=== PATIENT | female | born 1980 | race Caucasian/White ===

== ENCOUNTER 2022-10-26 19:32 | Emergency (ER) | payer BC, OTHER ==
[~2022-10-26] VITALS: Ht 180.3 cm; Wt 104.3 kg
[2022-10-26] MEDS ORDERED: methylPREDNISolone 125 MG (Solu-MEDROL) VIAL IVP ONE (19:45)
[2022-10-26] MEDS ORDERED: FAMOTIDINE 20MG/2ML IV (PEPCID) IVP ONE (19:45)
[2022-10-26] MEDS ORDERED: diphenhydrAMINE 50 MG/ML INJ (BENADRYL) IVP ONE (19:45)
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
[2022-10-26 20:07] LABS: BASOPHILS # (AUTO) 0.1 10^3/uL (0.0-0.1); BASOPHILS % (AUTO) 0 % (0-10); EOSINOPHILS # (AUTO) 0.3 10^3/uL (0.0-0.3); EOSINOPHILS % (AUTO) 1 % (0-10); HEMATOCRIT 42 % (35-52); HEMOGLOBIN 14.2 g/dL (11.5-16.0); LYMPHOCYTES % (AUTO) 13 % (12-44); MEAN CORPUSCULAR HEMOGLOBIN 30 pg (25-34); MEAN CORPUSCULAR HGB CONC 34 g/dL (32-36); MEAN CORPUSCULAR VOLUME 88 fL (80-99); MEAN PLATELET VOLUME 9.9 fL (9.0-12.2); MONOCYTES # (AUTO) 1.3 10^3/uL (0.0-1.0); MONOCYTES % (AUTO) 6 % (0-12); NEUTROPHILS # (AUTO) 18.4 10^3/uL (1.8-7.8); NEUTROPHILS % (AUTO) 80 % (42-75); PLATELET COUNT 407 10^3/uL (130-400); WHITE BLOOD COUNT 23.1 10^3/uL (4.3-11.0)
[2022-10-26 20:13] LABS: INR 0.9 (0.8-1.4); PROTHROMBIN TIME PATIENT 12.8 SEC (12.2-14.7)
[2022-10-26 20:20] LABS: ALBUMIN 3.8 GM/DL (3.2-4.5); BILIRUBIN,TOTAL 0.4 MG/DL (0.1-1.0); CREATININE SERUM 0.86 MG/DL (0.60-1.30); POTASSIUM 3.9 MMOL/L (3.6-5.0); TOTAL PROTEIN 7.1 GM/DL (6.4-8.2)
--- NOTE | 2022-10-26 20:27 | Diagnostic Imaging Report ---
EXAMINATION: Chest 1 view. HISTORY: Fever. Shortness of breath. COMPARISON: None available. FINDINGS: The lung volumes are normal. No focal consolidation is seen. No large pleural effusion or pneumothorax is seen. The cardiomediastinal silhouette is normal in size and contour. No acute osseous abnormality is seen. IMPRESSION: No acute pleuroparenchymal process. Dictated by: Dictated on workstation # [id number]
[2022-10-26 21:00] LABS: NEUTROPHILS % (MANUAL) 72 %
[2022-10-26 21:01] LABS: BAND NEUTROPHILS 4 %; EOSINOPHILS % (MANUAL) 1 %; LYMPHOCYTES % (MANUAL) 15 %; MONOCYTES % (MANUAL) 8 %; PLATELET ESTIMATE OCC LARGE PLTS
[2022-10-26 21:23] LABS: BILIRUBIN,URINE NEGATIVE (NEGATIVE); CLARITY,URINE CLEAR; COLOR,URINE YELLOW; GLUCOSE, URINE (UA) NEGATIVE (NEGATIVE); KETONES,URINE NEGATIVE (NEGATIVE); LEUKOCYTE ESTERASE ,URINE NEGATIVE (NEGATIVE); NITRITE,URINE NEGATIVE (NEGATIVE); PROTEIN,URINE NEGATIVE (NEGATIVE)
[2022-10-26] MEDS ORDERED: LACTATED RINGERS 1,000 ML IV ONE (21:30)
[2022-10-26 21:38] LABS: BACTERIA,URINE NEGATIVE /HPF
[2022-10-26] MEDS ORDERED: cefTRIAXone IV/IM 1,000 MG in NS (IVPB) 50 ML IV STA (22:30)
[2022-10-26] MEDS ORDERED: TRIM/SULFAMETH 160/800 (SEPTRA DS) TAB PO ONE (23:30)
[2022-10-26] MEDS ORDERED: CEFD300C3 PO (23:56)
[2022-10-26] MEDS ORDERED: SULF1TAB38 PO (23:56)
[2022-10-26] MEDS ORDERED: FAMO-119 PO (23:56)
[2022-10-26] MEDS ORDERED: PRD20T PO (23:56)
[2022-10-26] MEDS ORDERED: EPIN0.3P3 IJ (23:56)
[2022-10-27] MEDS ORDERED: FAMOTIDINE 20 MG (PEPCID) TABLET PO ONE (00:15)
[2022-10-27] MEDS ORDERED: diphenhydrAMINE 50 MG/ML INJ (BENADRYL) IM ONE (00:15)
[2022-10-27] MEDS ORDERED: predniSONE 20 MG TAB PO ONE (02:15)
[2022-10-27 02:24] VITALS: BP 114/64
== END 2022-10-27 02:24 | disposition home or self-care (01) ==
LOC: ER 19:37
DX: T78.40XA Allergy, unspecified, initial encounter (principal); T81.49XA Infection following a procedure, other surgical site, initial encounter; N61.0 Mastitis without abscess; R79.82 Elevated C-reactive protein (CRP); Z20.822 Contact with and (suspected) exposure to COVID-19; Z28.310 Unvaccinated for COVID-19
CPT/HCPCS: 36415; 71045; 80053; 81000; 83605; 84703; 85007; 85027; 85610; 85730; 86141; 87040; 87088; 87430; 87636